=== PATIENT | female | born 1960 | race Two or more races ===

== ENCOUNTER 2017-07-18 15:19 | Emergency (ER) | payer MEDICAID, OTHER ==
[~2017-07-18] VITALS: Ht 157.5 cm; Wt 70.3 kg
[~2017-07-18 15:19] MED LIST: IBU600T
[2017-07-18 16:38] LABS: Basophils # (auto) 0 uL; Basophils % (auto) 0.5 % (0.0-2.0); CONDITION Y; Eosinophils # (auto) 0.1 uL; Hematocrit 40.8 % (36.0-46.0); Hemoglobin 13.8 g/dL (12.2-16.2); Lymphocytes # (auto) 1.3 uL; Lymphocytes % (auto) 18.2 % (10.0-50.0); Mean Corpuscular Hemoglobin 30.4 pg (28.0-32.0); Mean Corpuscular Hgb Conc. 33.9 g/dL (32.0-36.0); Mean Corpuscular Volume 89.8 fL (80.0-100.0); Mean Platelet Volume 9.8 fL (7.4-10.4); Monocytes # (auto) 0.7 uL; Neutrophils # (auto) 5.1 uL; Neutrophils % (auto) 70.3 % (37.0-80.0); Platelet Count (auto) 239 10^3/uL (140-450); Red Cell Distribution Width 14.3 % (11.6-16.0); White Blood Cell 7.2 10^3/uL (4.4-10.8)
[2017-07-18 16:46] LABS: Albumin 3.5 g/dL (3.4-5.0); BUN/Creatinine Ratio 29.1; Calcium 8.8 mg/dL (8.5-10.1); Potassium 3.8 mmol/L (3.5-5.1)
[2017-07-18 16:48] LABS: Bilirubin, Total 0.3 mg/dL (0.2-1.0); Total Protein 7.9 g/dL (6.4-8.2)
[2017-07-18] MEDS ORDERED: ENOXAPARIN SOD 80 MG/0.8ML SYRINGE SC ONE (18:30)
[2017-07-18 19:05] VITALS: BP 174/98
[2017-07-18] MEDS ORDERED: APIXABAN 5 MG TAB PO ONE (20:30)
== END 2017-07-18 21:15 | disposition home or self-care (01) ==
LOC: ER 15:21
DX: I82.401 Acute embolism and thrombosis of unspecified deep veins of right lower extremity (principal); I83.93 Asymptomatic varicose veins of bilateral lower extremities; E11.9 Type 2 diabetes mellitus without complications; I10 Essential (primary) hypertension
CPT/HCPCS: 36415; 80053; 85025; 85379; 96372; 99284; J1650

== ENCOUNTER 2018-01-02 16:11 | Emergency (ER) | payer MEDICAID, OTHER ==
[~2018-01-02] VITALS: Ht 152.4 cm; Wt 66.2 kg
[2018-01-02 16:53] LABS: Basophils # (auto) 0.1 uL; Basophils % (auto) 0.7 % (0.0-2.0); Eosinophils # (auto) 0.1 uL; Eosinophils % (auto) 1.6 % (0.0-7.0); Hematocrit 39.3 % (36.0-46.0); Hemoglobin 13.1 g/dL (12.2-16.2); Lymphocytes # (auto) 1.6 uL; Lymphocytes % (auto) 21.8 % (10.0-50.0); Mean Corpuscular Hemoglobin 30.5 pg (28.0-32.0); Mean Corpuscular Hgb Conc. 33.4 g/dL (32.0-36.0); Mean Corpuscular Volume 91.5 fL (80.0-100.0); Monocytes # (auto) 0.8 uL; Monocytes % (auto) 10.4 % (0.0-12.0); Neutrophils # (auto) 4.8 uL; Neutrophils % (auto) 65.5 % (37.0-80.0); Platelet Count (auto) 256 10^3/uL (140-450); Red Cell Distribution Width 13.9 % (11.8-14.3); White Blood Cell 7.3 10^3/uL (4.4-10.8)
[2018-01-02 17:19] LABS: Albumin 3.3 g/dL (3.4-5.0); BUN/Creatinine Ratio 18.8; Bilirubin, Total 0.3 mg/dL (0.2-1.0); Calcium 8.9 mg/dL (8.5-10.1); Potassium 3.8 mmol/L (3.5-5.1)
[2018-01-02 19:27] LABS: Partial Thromboplastin Time 28.9 sec (22.64-33.71); Prothrombin Time 10.9 sec (9.37-12.3)
[2018-01-02] MEDS ORDERED: IOHEXOL 350 MG/ML 100ML IJ ONE (19:57)
[2018-01-02 21:59] VITALS: BP 123/80
== END 2018-01-02 21:45 | disposition home or self-care (01) ==
LOC: ER 16:16
DX: M79.605 Pain in left leg (principal); M79.604 Pain in right leg; E11.9 Type 2 diabetes mellitus without complications; M79.1 Myalgia; I10 Essential (primary) hypertension; Z86.718 Personal history of other venous thrombosis and embolism
CPT/HCPCS: 36415; 71275; 80053; 84484; 85025; 85379; 85610; 85730; 93970; 99285; Q9967

== ENCOUNTER 2018-03-10 13:12 | Emergency (ER) | payer MEDICAID ==
[~2018-03-10] VITALS: Ht 157.5 cm; Wt 67.6 kg
[2018-03-10 13:30] VITALS: BP 136/80
[2018-03-10] MEDS ORDERED: KETOROLAC TROMETH 60MG/2ML VIAL IM ONE (15:15)
[2018-03-10] MEDS ORDERED: HYDROcodone-ACET 10/325MG TAB PO ONE (15:15)
== END 2018-03-10 16:01 | disposition home or self-care (01) ==
LOC: ER 13:18
DX: M54.16 Radiculopathy, lumbar region (principal); R11.2 Nausea with vomiting, unspecified; R20.0 Anesthesia of skin; E11.9 Type 2 diabetes mellitus without complications; I10 Essential (primary) hypertension; Z79.899 Other long term (current) drug therapy
CPT/HCPCS: 72100; 96372; 99284; J1885

== ENCOUNTER 2021-04-10 08:17 | Emergency (ER) | payer MEDICAID ==
[~2021-04-10] VITALS: Ht 157.5 cm; Wt 68.0 kg
[2021-04-10 08:47] VITALS: BP 141/84
== END 2021-04-10 11:21 | disposition home or self-care (01) ==
LOC: ER 08:17
DX: M25.461 Effusion, right knee (principal); M25.571 Pain in right ankle and joints of right foot; I10 Essential (primary) hypertension; E11.9 Type 2 diabetes mellitus without complications; Z79.1 Long term (current) use of non-steroidal anti-inflammatories (NSAID)
CPT/HCPCS: 73562; 73610; 93971

== ENCOUNTER 2022-02-01 10:26 | Emergency (ER) | payer MEDICAID ==
[~2022-02-01] VITALS: Ht 157.5 cm; Wt 68.0 kg
[2022-02-01] MEDS ORDERED: KETOROLAC TROMETH 60MG/2ML VIAL IM ONE (11:15)
[2022-02-01 11:16] VITALS: BP 156/92
[2022-02-01] MEDS ORDERED: METH500T22 PO (11:43)
[2022-02-01] MEDS ORDERED: IBUP800T27 PO (11:43)
== END 2022-02-01 11:51 | disposition home or self-care (01) ==
LOC: ER 10:26
DX: G89.29 Other chronic pain (principal); M54.50 Low back pain, unspecified; M51.36 Other intervertebral disc degeneration, lumbar region; I10 Essential (primary) hypertension; E11.9 Type 2 diabetes mellitus without complications; Z79.1 Long term (current) use of non-steroidal anti-inflammatories (NSAID); Z79.899 Other long term (current) drug therapy
CPT/HCPCS: 96372; 99283; J1885

== ENCOUNTER 2024-03-29 05:42 | Emergency (ER) | payer MEDICAID ==
[~2024-03-29] VITALS: Ht 157.5 cm; Wt 68.0 kg
[2024-03-29 05:42] VITALS: O2SAT 99
[~2024-03-29 05:42] MED LIST changes: +IBUP-1456 PO; +METH-1181 PO
[2024-03-29 06:31] VITALS: BP 139/96; PULSE 73; RESP 20; TEMP 97.3
[2024-03-29] MEDS ORDERED: ACET500T58 PO (08:23)
[2024-03-29] MEDS ORDERED: MELO7.5T7 PO (08:23)
[2024-03-29] MEDS: KETOROLAC TROMETH 30 MG/ML 1ML VIAL IM ONE (08:32)
== END 2024-03-29 08:43 | disposition home or self-care (01) ==
LOC: ER 05:42
DX: M19.011 Primary osteoarthritis, right shoulder (principal); E11.9 Type 2 diabetes mellitus without complications; I10 Essential (primary) hypertension
CPT/HCPCS: 29105; 73030; 96372; 99283; J1885

== ENCOUNTER 2024-05-28 08:39 | Emergency (ER) | payer MEDICAID ==
[~2024-05-28] VITALS: Ht 157.5 cm; Wt 69.7 kg
[~2024-05-28 08:39] MED LIST changes: +ACET500T58 PO; +MELO7.5T7 PO
[2024-05-28] MEDS ORDERED: ACETAMINOPHEN 500 MG TAB PO ONE (09:00)
[2024-05-28 09:06] VITALS: BP 143/84; PULSE 72; RESP 18; TEMP 98; O2SAT 96
[2024-05-28] MEDS ORDERED: IBUP-1456 PO (09:36)
[2024-05-28] MEDS ORDERED: METH-1182 PO (09:36)
[2024-05-28] MEDS: KETOROLAC TROMETH 60MG/2ML VIAL IM ONE (09:40)
== END 2024-05-28 09:49 | disposition home or self-care (01) ==
LOC: ER 08:39
DX: M77.32 Calcaneal spur, left foot (principal); I10 Essential (primary) hypertension; E11.9 Type 2 diabetes mellitus without complications; Z79.899 Other long term (current) drug therapy
CPT/HCPCS: 73630; 96372; 99283; J1885

== ENCOUNTER 2024-07-19 08:21 | Emergency (ER) | payer MEDICAID ==
[~2024-07-19] VITALS: Ht 157.5 cm; Wt 69.9 kg
[~2024-07-19 08:21] MED LIST changes: +METH-1182 PO
[2024-07-19 08:43] VITALS: BP 145/85; PULSE 73; RESP 16; TEMP 98.3; O2SAT 97
[2024-07-19] MEDS ORDERED: CYCL-837 PO (09:11)
[2024-07-19] MEDS ORDERED: MELO7.5T7 PO (09:11)
[2024-07-19] MEDS: KETOROLAC TROMETH 30 MG/ML 1ML VIAL IM ONE (09:15)
[2024-07-19] MEDS: methylPREDNISolone SOD SUCC 125 MG/2 ML VL IM ONE (09:15)
== END 2024-07-19 09:19 | disposition home or self-care (01) ==
LOC: ER 08:26
DX: M54.32 Sciatica, left side (principal); E11.9 Type 2 diabetes mellitus without complications; I10 Essential (primary) hypertension; Z79.1 Long term (current) use of non-steroidal anti-inflammatories (NSAID); Z79.899 Other long term (current) drug therapy
CPT/HCPCS: 96372; 99284; J1885; J2919

== ENCOUNTER 2025-03-19 04:58 | Emergency (ER) | payer MEDICAID ==
[~2025-03-19] VITALS: Ht 157.5 cm; Wt 68.6 kg
[~2025-03-19 04:58] MED LIST changes: +CYCL-837 PO
--- NOTE | 2025-03-19 05:40 | ED.PDOC ---
HPI (NEURO) HPI Comments C/C of constant headache x1 week. Pt states pain is to posterior head that feels like pressure and sometimes radiates to anterior head that is intermittent. Pt rates pain 6/10. Denies N/V, blurred vision. Admits to some dizziness. VSS. NKDA. Pt A&O x4. Ambulates with steady gait. No s/s of distress noted. Denies worst headache of her life, fever, chills, or known trauma Chief Complaint: Headache Time Seen by MD: 05:34 Primary Care Provider: unknown Reviewed Notes: Nurses Notes, Medications, Allergies Information Source: Patient Mode of Arrival: Ambulatory Past Medical History PAST MEDICAL HISTORY: DM, HTN Surgical History: Denies all surgeries MELON PACKER History: No Pertinent MELON PACKER History Family History Family History: Reviewed,noncontributory to illness Social History Smoker: Non-Smoker Alcohol: Denies ETOH Use Drugs: Denies Drug Use Lives In: Home Constitutional: denies: chills, diaphoresis, fatigue, fever, malaise, sweats, weakness, others EENTM: denies: blurred vision, double vision, ear bleeding, ear discharge, ear drainage, ear pain, ear ringing, eye pain, eye redness, hearing loss, mouth pain, mouth swelling, nasal discharge, nose bleeding, nose congestion, nose pain, photophobia, tearing, throat pain, throat swelling, voice changes, others Respiratory: denies: cough, hemoptysis, orthopnea, SOB at rest, shortness of breath, SOB with excertion, stridor, wheezing, others Cardiovascular: denies: chest pain, dizzy spells, diaphoresis, Dyspnea on exertion, edema, irregular heart beat, left arm pain, lightheadedness, palpitations, PND, syncope, others Gastrointestinal: denies: abdomen distended, abdominal pain, blood streaked bowels, constipated, diarrhea, dysphagia, difficulty swallowing, hematemesis, melena, nausea, poor appetite, poor fluid intake, rectal bleeding, rectal pain, vomiting, others Genitourinary: denies: abnormal vagina bleeding, burning, dyspareunia, dysuria, flank pain, frequency, hematuria, incontinence, pain, , vagina discharge, urgency, others Neurological: reports: dizziness, headache; denies: fainting, left sided numbness, left sided weakness, numbness, paresthesia, pre-existing deficit, right sided numbness, right sided weakness, seizure, speech problems, tingling, tremors, weakness, others Musculoskeletal: denies: back pain, gout, joint pain, joint swelling, muscle pain, muscle stiffness, neck pain, others Integumetry: denies: bruises, change in color, change in hair/nails, dryness, laceration, lesions, lumps, rash, wounds, others Allergic/Immunocompromised: denies: Difficulty Healing, Frequent Infections, Hives, Itching, others Hematologic/Lymphatic: denies: anemia, blood clots, easy bleeding, easy bruising, swollen glands, others Endocrine: denies: excessive hunger, excessive sweating, excessive thirst, excessive urination, flushing, intolerance to cold, intolerance to heat, unexplained weight gain, unexplained weight loss, others Psychiatric: denies: anxiety, bipolar disorder, depression, hopeless, panic disorder, schizophrenia, sleepless, suicidal, others Physical Exam General Appearance: No Apparent Distress, Normal HEENT: Normal ENT Inspection, Pharynx Normal, TMs Normal Neck: Full Range of Motion, Non-Tender Respiratory: Lungs Clear, No Respiratory Distress, Normal Breath Sounds Cardiovascular: No Edema, No JVD, No Murmur, No Gallop, Normal Peripheral Pulses, Regular Rate/Rhythm Breast Exam: Deferred Gastrointestinal: No Organomegaly, Non Tender, No Pulsatile Mass, Normal Bowel Sounds, Soft Genitalia: Deferred Pelvic: Deferred Rectal: Deferred Extremities: Normal capillary refill, Normal inspection, Normal range of motion, Non-tender, No pedal edema Musculoskeletal : Apperance: Normal Neurologic: Alert, 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 Was a procedure done?: No Differential Diagnosis (SZ) Headache: Cluster, Migraine, Epidural Hemorrhage, Intracerebral Hemorrhage, Subarachnoid Hemorrhage, Subdural Hemorrhage, Mass Lesion, Meningitis, Sinusitis, Trigeminal Neuralgia X-Ray, Labs, Meds, VS Vital Signs Date Time Temp Pulse Resp B/P (MAP) Pulse Ox O2 Delivery O2 Flow Rate FiO2 03/19/25 05:52 78 19 97 Room Air 03/19/25 05:52 98.2 78 19 129/82 (98) 97 98.2 03/19/25 05:16 97.8 85 16 134/83 (100) 96 97.8 Current Medications Medications (Trade) Dose Ordered Sig/Jerald Route Start Time Stop Time Status Last Admin Ketorolac Tromethamine (Toradol Injection) 60 mg ONCE ONCE IM 03/19/25 05:45 03/19/25 05:46 DC 03/19/25 05:45 Dexamethasone Sodium Phosphate (Decadron Injection) 10 mg ONCE ONCE IM 03/19/25 05:45 03/19/25 05:46 DC 03/19/25 05:45 Acetaminophen (Tylenol Tablet Or Capsule) 500 mg ONCE ONCE PO 03/19/25 05:45 03/19/25 05:46 DC 03/19/25 05:45 X-Ray, Labs, Meds, VS Comment Patient given Toradol 60 mg IM, Decadron 10 mg IM, and Tylenol 500 mg p.o.. Patient reports improvement in pain notes headache 1/10 on pain scale requesting discharge at this time. Advised to rest increase p.o. fluids with electrolytes script sumatriptan advised take medication as prescribed side effects discussed. He is to follow up with her PCP in 2 days as needed ER return precautions given patient indicates understanding agrees with discharge plan of care. Time of 1ST Reevaluation: 05:40 Reevaluation 1ST: Unchanged Time of 2ND Reevaluation: 06:45 Reevaluation 2ND: Improved Patient Education/Counseling: Diagnosis, Treatment, Prognosis, Need For Follow Up Family Education/Counseling: No Family Present Departure 1 Departure Time of Disposition: 06:52 Impression: Primary Impression: Headache Qualified Codes: R51.9 - Headache, unspecified Disposition: 01 HOME / SELF CARE / HOMELESS Condition: Stable e-Prescriptions Sumatriptan Succinate (Sumatriptan Succinate) 25 Mg Tab 25 MG PO ONCE PRN for 3 Days, #6 TAB 1 tab by mouth at onset of migraine may repeat one tab 2 hours if migraine continues Prov: KELLEE MORRIS 03/19/25 Discharged With: Spouse Critical Care Note Critical Care Time?: No Stability Stability form required: KELLEE Bauman Mar 19, 2025 05:40
[2025-03-19] MEDS: ACETAMINOPHEN 500 MG TAB or CAP PO ONE (05:45)
[2025-03-19] MEDS: KETOROLAC TROMETH 60MG/2ML VIAL IM ONE (05:45)
[2025-03-19] MEDS: DexAMETHasone SOD PHOS 10MG/1ML VIAL INJ IM ONE (05:45)
[2025-03-19] MEDS ORDERED: SUMA25TA2 PO (05:49)
[2025-03-19 05:52] VITALS: BP 129/82; PULSE 78; RESP 19; TEMP 98.2; O2SAT 97
== END 2025-03-19 06:52 | disposition home or self-care (01) ==
LOC: ER 04:58
DX: R51.9 Headache, unspecified (principal); E11.9 Type 2 diabetes mellitus without complications; I10 Essential (primary) hypertension
CPT/HCPCS: 96372; 99284; J1100; J1885